=== PATIENT | male | born 2000 | race Caucasian/White ===

== ENCOUNTER → 2024-07-11 09:24 | Outpatient (CLI) | payer OTHER, SELFPAY ==
--- NOTE | 2024-07-11 09:26 | DI.ECHO.S_ITS ---
[facility] : : [address] : : [place] : : [id number] : : Phone: [phone] Echocardiogram Report + + :Name: RADHA VALENZUELA Study Date: 07/11/2024 Height: 71 in : :Hospital ReadingLocation: Weight: 300 lb : : Gender: Male BSA: 2.5 m2 : :: 2000 Age: 24 yrs BP: 145/89 mmHg: :Reason For Study: ISCHMIEC HEART DISEASE : :Ordering Physician: JIMMY, : :DANIELA Performed By: Blake Salazar : :Referring: DANIELA MARQUEZ : + + Interpretation Summary Technically difficult study. 1) Normal left ventricular thickness, size, and systolic function (EF 60-65%). 2) There are no obvious focal wall motion abnormalities noted but poor endocardial definition reduces the sensitivity for the detection of such. 3) Mildly enlarged right ventricle with normal function. 4) No significant valvular abnormalities. 5) No prior Echo available for comparison. Procedure: A two-dimensional transthoracic echocardiogram with color flow and Doppler was performed. The study quality was technically difficult. There is no prior echocardiogram noted for this patient. The patient was in normal sinus rhythm during the exam. Left Ventricle: The left ventricle is normal in size. There is normal left ventricular wall thickness. There is no ventricular septal defect visualized. The ejection fraction is estimated to be 60-65%. There are no obvious focal wall motion abnormalities noted but poor endocardial definition reduces the sensitivity for the detection of such. Diastolic parameters suggest a relaxation abnormality of the left ventricle, consistent with probable normal filling pressures. Right Ventricle: The right ventricle is mildly dilated. The right ventricular systolic function is normal. Atria: The left atrial size is normal. Right atrial size is normal. There is no Doppler evidence for an interatrial shunt. Mitral Valve: The mitral valve leaflets are slightly calcified. There is no mitral regurgitation noted. Aortic Valve: The aortic valve is grossly normal. There is no aortic valve stenosis. No aortic regurgitation is present. Tricuspid Valve: The tricuspid valve is not well visualized, but is grossly normal. No tricuspid regurgitation. Pulmonary artery pressures cannot be estimated because of the lack of a measurable TR jet velocity. Pulmonic Valve: The pulmonic valve leaflets are thin and pliable; valve motion is normal. There is no pulmonic valvular regurgitation. Great Vessels: The aortic root is normal size. The dimensions of the ascending aorta are normal. The pulmonary artery is normal size. The inferior vena cava was not visualized. Pericardium/ Pleura There is no pericardial effusion. MMode/2D Measurements & Calculations LVIDd: 5.6 cm LVOT diam: 2.2 cm LVIDs: 3.3 cm Ao root diam: 3.3 cm FS: 41.1 % asc Aorta Diam: 3.0 cm EPSS: 0.52 cm IVSd: 0.90 cm LVPWd: 0.89 cm LV valentino. diameter/BSA (cm/m^2): 2.2 LV sys. diameter/BSA (cm/m^2): 1.3 LA A2 area: 13.3 cm2 RA long axis: 4.2 cm LA A4 area: 11.9 cm2 RA area: 11.9 cm2 LA length (vol): 4.6 cm RA vol: 28.5 ml LA vol: 29.0 ml RA : 11.4 ml/m2 LA vol index: 11.6 ml/m2 RVD1 (basal): 4.2 cm RVD2 (mid): 3.5 cm TAPSE: 2.0 cm Doppler Measurements & Calculations Ao V2 max: 108.5 cm/sec LVOT Max Jose: 103.9 cm/sec Ao V2 mean: 79.6 cm/sec LV V1 max P.3 mmHg Ao max P.7 mmHg LV V1 VTI: 20.6 cm Ao mean P.7 mmHg ESPERANZA(I,D): 3.4 cm2 Ao V2 VTI: 22.7 cm ESPERANZA(V,D): 3.6 cm2 sev ratio: 0.91 ESPERANZA indexed to BSA (cm^2/m^2): 1.4 MV E max jose: 92.2 cm/sec PA V2 max: 107.9 cm/sec MV A max jose: 44.8 cm/sec PA V2 mean: 68.8 cm/sec MV E/A: 2.1 PA mean P.2 mmHg Med Peak E' Jose: 11.8 cm/sec PA pr(Accel): 49.9 mmHg E/E' med: 7.8 Lat Peak E' Jose: 16.5 cm/sec E/E' lat: 5.6 E/e' average: 6.7 MV dec time: 0.20 sec SV(LVOT): 77.7 ml Reading Physician:[id number] PM
== END ==
PROVIDERS: Referring Provider Chiropractor; Visit Provider Chiropractor
DX: I25.9 Chronic ischemic heart disease, unspecified (principal)
CPT/HCPCS: 93306